=== PATIENT | male | born 1990 | race Caucasian/White ===

== ENCOUNTER 2024-10-28 12:53 | Emergency (ER) | payer MEDICAID, SELFPAY ==
[2024-10-28 13:11] VITALS: BP 191/114; BP 215/125; PULSE 83; RESP 20; TEMP 36.8; O2SAT 98; BMI 33.9
--- NOTE | 2024-10-28 13:23 | EDNOTE_ITS ---
Upper Extremity Injury RME/HPI General Chief Complaint: Hand/Wrist Problems Stated Complaint: Right ring finger swollen X 3 days Time Seen by Provider: 10/28/24 13:03 Arrival date/time: 10/28/24 12:53 This is a 34-year-old male that comes into the emergency room with complaints of right fourth digit swelling. Patient states that he thinks that he got bit by a bug. Patient denies fever or chills. Patient denies any other complaints. Related Data Previous Rx's ?Medication ?Instructions ?Recorded doxycycline hyclate 100 mg tablet 100 mg PO BID #14 ta bs 10/28/24 Allergies Allergy/AdvReac Type Severity Reaction Status Date / Time NKA* Allergy Uncoded 10/28/24 12:58 Course Orders Category Date Time Status Doxycycline [Vibramycin] Med 10/28/24 13:22 Once 100 mg PO X1 ONE Ibuprofen Tab [Motrin Tab] Med 10/28/24 13:22 Once 800 mg PO X1 ONE Vital Signs Vital signs: Vital Signs Temperature 98.3 F 10/28/24 13:11 Pulse Rate 83 10/28/24 13:11 Respiratory Rate 20 10/28/24 13:11 Blood Pressure 215/125 H 10/28/24 13:11 Pulse Oximetry (%) 98 10/28/24 13:11 Oxygen Delivery Method Room Air 10/28/24 13:11 Extremity Injury MDM Narrative MDM Narrative:: Will treat patient for early cellulitis. Patient does have some mild erythema around that fourth digit. Patient has some mild pain to palpation. Patient denies any trauma. Will send patient home with doxycycline. Will give patient a tetanus shot. I spoke to patient at length patient states he is anxious his blood pressure is elevated will have patient's blood pressure rechecked here. Patient told the importance of follow-up on his blood pressure. Discharge Plan Plan Patient Disposition: HOME (Self Care) Patient condition on transfer: Stable Prescriptions/Referrals Prescriptions/Med Rec: New doxycycline hyclate 100 mg tablet 100 mg PO BID Qty: 14 0RF Problem List Clinical Impression: Cellulitis Patient/Caregiver Discharge Instructions Discharge Activity: activity as tolerated Education Materials: ED Cellulitis Print Language: Hungarian Stand Alone Forms: Nayla Award Info., Patient Portal Info Letter PA/RELEASE OF INFORMATION SPECIALIST Supervising Physician PA/RELEASE OF INFORMATION SPECIALIST Supervising Physician: [email or web address]
[2024-10-28] MEDS: DOXYCYCLINE 100 MG TABLET PO (13:46)
[2024-10-28] MEDS: DIPHTH,PERTUSS(ACELL),TET VAC 0.5 ML SYR- ADULT IMi (13:46)
[2024-10-28] MEDS: IBUPROFEN TAB 400 MG TABLET 800 MG PO (13:46)
== END 2024-10-28 13:55 | disposition home or self-care (01) ==
LOC: SERX 13:38
PROVIDERS: Emergency Provider Emergency Medicine; PCP Family Medicine
DX: L03.011 Cellulitis of right finger (principal); Z23 Encounter for immunization
CPT/HCPCS: 90471; 90715; 99282; A9270